=== PATIENT | female | born 1975 | race Caucasian/White ===

== ENCOUNTER → 2016-09-06 | Outpatient (CLI) | payer OTHER ==
[~2016-09-06] MED LIST: IOHEXOL 240 MG/ML 50ML VIAL. PO ONE; IOHEXOL 300 MG/ML 100ML VIAL. IV ONE; OMEP40CA5 PO; RANI150T6 PO
--- NOTE | 2016-09-06 10:54 | KCIC ---
PROCEDURE CT abdomen and pelvis with contrast. HISTORY Abdominal pain for 1 year. Ablation. TECHNIQUE Axial images and coronal and sagittal re-formatted images are provided. Oral contrast and 67 milliliters of intravenous Omnipaque 300 was administered without complication. One or more of the following individualized dose reduction techniques were utilized for this exam: 1. Automated exposure control. 2. Adjustment of the mA and/or kV according to patient's size. 3. Use of iterative reconstruction technique. COMPARISON Outside study believed to be the same patient dated June 06, 2015. FINDINGS There is minimal dependent atelectasis. There is no pleural effusion. The heart is not enlarged. The liver, gallbladder, spleen, pancreas, and adrenals are unremarkable. Kidneys are symmetrically perfused. Aorta is normal caliber. There is no small bowel obstruction or mural thickening. Colon is grossly unremarkable. Normal appendix is probably visualized. Free pelvic fluid may be physiologic. Peripherally enhancing presumed collapsing follicle on the left is noted, 19 millimeters in size. Bladder is unremarkable. Calcified phleboliths are noted. Free pelvic fluid may be physiologic. Bony structures appear intact. IMPRESSION No acute abdominal findings. Electronically signed by: Ubaldo Blandon MD (Sep 06, 2016 10:52:38)
== END | disposition home or self-care (01) ==
LOC: KCIC CT 09:17
PROVIDERS: ATTEND Family Medicine
DX: R10.9 Unspecified abdominal pain (principal); Z79.01 Long term (current) use of anticoagulants
CPT/HCPCS: 74177; Q9966; Q9967

== ENCOUNTER → 2016-11-24 | Outpatient (CLI) | payer OTHER ==
[~2016-11-24] MED LIST changes: -IOHEXOL 240 MG/ML 50ML VIAL. PO ONE; -IOHEXOL 300 MG/ML 100ML VIAL. IV ONE
--- NOTE | 2016-11-24 14:33 | KCIC ---
Bilateral diagnostic digital mammograms: Reason for examination: Left lateral breast lump for 3 months with tenderness. Baseline exam. The skin and nipples show no abnormalities. No abnormal axillary lymph nodes are seen. The breast parenchyma is heterogeneously dense. (Breast density: Category C.) There are subtle areas of nodularity suggested medially. Ultrasound follow-up. There are no suspicious calcifications or architectural distortion. Impression: Subtle nodularity in the medial left breast. Ultrasound to follow. Your patient's mammogram demonstrates that she has dense breast tissue (breast density category C or D), which could hide abnormalities, and if she has other risk factors for breast cancer that have been identified, she might benefit from supplemental screening tests that may be suggested by you as her ordering physician. Dense breast tissue, in and of itself, is a relatively common condition. Therefore, this information is not provided to cause undue concern, but rather to raise your awareness and to promote discussion with your patient regarding the presence of other risk factors, in addition to dense breast tissue. Your patient's mammography results will be sent to her. BI-RAD Category 0: Incomplete. Ultrasound to follow. Left breast ultrasound: Ultrasound examination of the left breast was performed. In the 2:00 position 11 cm from the nipple, there is a 4.5 mm intramammary lymph node present. In the 7:00 position 4 cm from the nipple, there is some heterogeneity to the tissue without definite nodule. There is some ductal ectasia. IMPRESSION: Intramammary lymph node at the 2:00 position 11 cm from the nipple. Some heterogeneity to the tissue in the 7:00 position without a definite discrete nodule identified. Recommend close follow-up reevaluation with ultrasound in 3 months. BI-RADS Category 3: Probably Benign. "Our facility is accredited by the [employer] Mammography [employer]." This patient's information has been entered into a reminder system for the patient to be notified with the results of her examination and a target date for the next mammogram. Electronically signed by: Malena Mckeon MD (11/24/2016 2:29 PM)
== END | disposition home or self-care (01) ==
LOC: KCIC MAMMO 12:27
PROVIDERS: ATTEND Nurse Practitioner Family
DX: N63 Unspecified lump in breast (principal); N64.0 Fissure and fistula of nipple; N64.4 Mastodynia
CPT/HCPCS: 76641; G0204; 77066

== ENCOUNTER → 2017-07-12 | Outpatient (CLI) | payer OTHER ==
[2017-07-12 13:18] LABS: HEMATOCRIT 39.4 % (36.0-47.0); HEMOGLOBIN 13.2 g/dL (12.0-15.5); MEAN CORPUSCULAR HEMOGLOBIN 31 pg (25-35); MEAN CORPUSCULAR HGB CONC 33 g/dL (31-37); MEAN CORPUSCULAR VOLUME 93 fL (79-100); PLATELET COUNT 269 x10^3/uL (140-400); RED BLOOD COUNT 4.26 x10^6/uL (3.50-5.40); WHITE BLOOD COUNT 5.5 x10^3/uL (4.0-11.0)
[2017-07-12 13:46] LABS: ALBUMIN 3.6 g/dL (3.4-5.0); ALBUMIN/GLOBULIN RATIO 0.9 (1.0-1.7); ALK PHOS 58 U/L (46-116); ALT (SGPT) 15 U/L (14-59); ANION GAP 10 (6-14); AST (SGOT) 12 U/L (15-37); BLOOD UREA NITROGEN 16 mg/dL (7-20); BUN/CREATININE RATIO 20 (6-20); CALCIUM 8.7 mg/dL (8.5-10.1); CARBON DIOXIDE 27 mmol/L (21-32); CHLORIDE 102 mmol/L (98-107); CHOLESTEROL 200 mg/dL (0-200); CREATININE 0.8 mg/dL (0.6-1.0); GFR 77.9; GLUCOSE 96 mg/dL (70-99); HDLC 72 mg/dL (40-60); LDLC 107 mg/dL (0-100); NON-HDL CHOLESTEROL 128 mg/dL (0-129); POTASSIUM 3.4 mmol/L (3.5-5.1); SODIUM 139 mmol/L (136-145); TOTAL BILIRUBIN 0.4 mg/dL (0.2-1.0); TOTAL PROTEIN 7.4 g/dL (6.4-8.2); TRIGLYCERIDES 106 mg/dL (0-150); VLDLC 21 mg/dL (0-40)
[2017-07-12 13:49] LABS: CHOLESTEROL/HDL RATIO 2.8
[2017-07-12 13:57] LABS: VITAMIN-B12 383 pg/mL (247-911)
[2017-07-12 13:58] LABS: FOLATE 15.94 ng/ml (3.2-20.0)
[2017-07-12 14:06] LABS: FREE T4 0.88 ng/dL (0.76-1.46)
[2017-07-12 15:34] LABS: % SAT IRON 23 % (15-34); IRON,SERUM 62 ug/dL (50-170)
== END | disposition home or self-care (01) ==
LOC: LAB 12:53
DX: Z13.228 Encounter for screening for other metabolic disorders (principal); R53.83 Other fatigue; Z79.899 Other long term (current) drug therapy
CPT/HCPCS: 36415; 80053; 80061; 82306; 82607; 82746; 83540; 83550; 84439; 84443; 85027

== ENCOUNTER → 2018-10-27 | Outpatient (CLI) | payer OTHER ==
[~2018-10-27] MED LIST changes: +RANI-376 PO; -RANI150T6 PO
[2018-10-27 09:48] LABS: BASO % 1 % (0-3); EOS # 0.1 x10^3/uL (0.0-0.7); EOS % 2 % (0-3); HEMOGLOBIN 13.5 g/dL (12.0-15.5); LYMPH # 1.1 x10^3/uL (1.0-4.8); LYMPH % 24 % (24-48); MEAN CORPUSCULAR HEMOGLOBIN 30 pg (25-35); MEAN CORPUSCULAR HGB CONC 33 g/dL (31-37); MEAN CORPUSCULAR VOLUME 92 fL (79-100); MONO # 0.6 x10^3/uL (0.0-1.1); MONO % 13 % (0-9); NEUT # 2.8 x10^3uL (1.8-7.7); NEUT % 60 % (31-73); PLATELET COUNT 238 x10^3/uL (140-400); RED BLOOD COUNT 4.46 x10^6/uL (3.50-5.40); WHITE BLOOD COUNT 4.7 x10^3/uL (4.0-11.0)
[2018-10-27 10:03] LABS: ALBUMIN 3.9 g/dL (3.4-5.0); CALCIUM 9.2 mg/dL (8.5-10.1); CREATININE 0.9 mg/dL (0.6-1.0); GFR 67.7; POTASSIUM 3.6 mmol/L (3.5-5.1); THYROID STIM HORMONE (TSH) 1.997 uIU/mL (0.358-3.74); TOTAL BILIRUBIN 0.3 mg/dL (0.2-1.0); TOTAL PROTEIN 7.7 g/dL (6.4-8.2)
--- NOTE | 2018-10-27 10:57 | RAD ---
Right lower extremity venous ultrasound, 10/27/2018 : History: Right lower show any pain and swelling Duplex evaluation including grayscale, color flow and spectral Doppler analysis was performed. The femoral and popliteal veins show no filling defects to suggest DVT. The visualized deep veins in the right calf are unremarkable. IMPRESSION: There is no sonographic evidence of deep vein thrombosis in the right lower extremity Electronically signed by: Agustin Terrell MD (10/27/2018 10:55 AM) [facility]
== END | disposition home or self-care (01) ==
LOC: US 09:17
PROVIDERS: ATTEND Nurse Practitioner Family
DX: M79.604 Pain in right leg (principal); R53.83 Other fatigue
CPT/HCPCS: 36415; 80053; 82306; 82607; 82746; 83540; 83550; 84439; 84443; 85025; 93971